=== PATIENT | female | born 1940 | race Caucasian/White ===

== ENCOUNTER → 2018-04-21 | Outpatient (CLI) | payer MEDICARE | END | disposition home or self-care (01) | LOC: RAH 04-19 10:58 | PROVIDERS: ATTEND Physical Medicine & Rehabilitation | DX: M47.816 Spondylosis without myelopathy or radiculopathy, lumbar region (principal); M41.84 Other forms of scoliosis, thoracic region; M21.70 Unequal limb length (acquired), unspecified site; Z90.49 Acquired absence of other specified parts of digestive tract | CPT/HCPCS: 72081; 72110 ==